=== PATIENT | female | born 1960 | race Caucasian/White ===

== ENCOUNTER 2016-05-25 13:52 | Outpatient (CLI) | payer BC ==
[2016-05-25 14:30] LABS: #Basophils 0.2 thou/uL (0.0-0.2); #Eosinphils 0.3 thou/uL (0.0-0.7); #Lymphocytes 3.9 thou/uL (1.20-3.40); #Monocytes 0.9 thou/uL (0.11-0.59); #Neutrophils 9.6 thou/uL (1.40-6.50); %Basophils 1.4 % (0.0-1.0); %Eosinophils 1.9 % (0.0-10.0); %Monocytes 6.2 % (0.0-10.0); %Neutrophils 64.6 % (42.0-75.0); Hemoglobin 14.4 g/dL (12.0-16.0); Mean Corpuscular HGB CONC 35.6 g/dL (32.0-36.0); Mean Corpuscular Volume 89.9 fl (81.0-99.0); Mean Platelet Volume 7.2 fL (7.4-10.4); Platelet Count 296 thou/uL (130-400); RBC Distribution Width 11.4 % (11.5-14.5); Red Blood Cell (RBC) Count 4.48 mill/uL (4.20-5.40); White Blood Cell (WBC) Count 14.9 thou/uL (4.8-10.8)
[2016-05-25 14:40] LABS: Hemoglobin A1c 7.2 % (4.0-6.0)
[2016-05-25 14:46] LABS: ALT (SGPT) 15 U/L (0-55); AST (SGOT) 12 U/L (5-34); Albumin 4.2 g/dL (3.5-5.0); Alkaline Phosphatase 73 U/L (40-150); Anion Gap 17 mmol/L (10-20); BUN (Urea Nitrogen) 15 mg/dL (9.8-20.1); Bilirubin, Total 0.3 mg/dL (0.2-1.2); Calc. Creatinine Clearance 0 mL/min (70-130); Calcium 9.7 mg/dL (7.8-10.44); Carbon Dioxide 24 mmol/L (22-29); Cardiac Risk 3.5 (Less than 4.5); Chloride 101 mmol/L (98-107); Cholesterol 184 mg/dL (< 200 Desired); Estimated GFR-MDRD Greater than 90; Globulin 3.3 g/dL (2.4-3.5); Glucose 183 mg/dL (70-105); HDL Cholesterol 53 mg/dL (>60 Neg Risk); LDL Cholesterol, Calculated 67 mg/dL; Potassium 3.8 mmol/L (3.5-5.1); Protein, Total 7.5 g/dL (6.0-8.3); Sodium 138 mmol/L (136-145); Triglycerides 322 mg/dL (Less than 150)
[2016-05-26 18:25] LABS: Creatinine, Urine 139.08 mg/dL (47-110); Microalbumin Urine 3.4 mg/dL (0.5-50.0); Microalbumin/Creat Ratio 24.4 mg/g (Less than 30)
== END 2016-05-25 13:53 | disposition home or self-care (01) ==
LOC: MADLABBHPM 13:52
PROVIDERS: ATTEND Family Medicine
DX: E11.9 Type 2 diabetes mellitus without complications (principal)
CPT/HCPCS: 36415; 80053; 80061; 82043; 82570; 83036; 84443; 85025

== ENCOUNTER 2018-06-18 09:14 | Emergency (ER) | payer BC ==
[2018-06-18] MEDS ORDERED: Ondansetron ODT 4 MG TAB ONE (09:52)
== END 2018-06-18 10:18 | disposition home or self-care (01) ==
LOC: MADERS 09:14
DX: J11.1 Influenza due to unidentified influenza virus with other respiratory manifestations (principal); E11.9 Type 2 diabetes mellitus without complications; Z79.899 Other long term (current) drug therapy; Z79.84 Long term (current) use of oral hypoglycemic drugs
CPT/HCPCS: 99283; Q0162

== ENCOUNTER 2020-09-30 11:16 | Outpatient (CLI) | payer BC ==
[2020-09-30 11:55] LABS: #Basophils 0.2 thou/uL (0.0-0.2); #Eosinphils 0.4 thou/uL (0.0-0.7); #Monocytes 0.7 thou/uL (0.11-0.59); #Neutrophils 7.7 thou/uL (1.40-6.50); %Basophils 1.4 % (0.0-1.0); %Lymphocytes 30.5 % (21.0-51.0); %Monocytes 5.7 % (0.0-10.0); %Neutrophils 59.5 % (42.0-75.0); Mean Corpuscular HGB CONC 32.8 g/dL (32.0-36.0); Mean Corpuscular Hemoglobin 30.2 pg (27.0-31.0); Mean Platelet Volume 7.8 fL (7.4-10.4); Platelet Count 291 thou/uL (130-400); RBC Distribution Width 11.6 % (11.5-14.5); Red Blood Cell (RBC) Count 4.64 mill/uL (4.20-5.40)
[2020-10-01 10:25] LABS: Band 2 % (5-11); Eosinophils 6 % (0-10); Lymphocytes 27 % (21-51); Monocytes 2 % (0-10); Reactive Lymphocytes 5 % (0-10)
[2020-10-01 10:26] LABS: Platelet Morphology Comment Appears Adequate; Polychromasia SLIGHT = 2-3 cells (100X) (0-2/hpf)
[2020-10-01 10:30] LABS: Neutrophil 56 % (42-75)
== END 2020-09-30 11:17 | disposition home or self-care (01) ==
LOC: MADLAB 11:16
PROVIDERS: ATTEND Family Medicine
DX: M25.511 Pain in right shoulder (principal); D72.9 Disorder of white blood cells, unspecified; M19.011 Primary osteoarthritis, right shoulder
CPT/HCPCS: 36415; 85025; 85060

== ENCOUNTER 2021-11-27 17:02 | Outpatient (CLI) | payer BC | END 2021-11-27 17:03 | disposition home or self-care (01) | LOC: MADRAD 17:02 | PROVIDERS: ATTEND Family Medicine | DX: M25.562 Pain in left knee (principal); M17.12 Unilateral primary osteoarthritis, left knee ==

== ENCOUNTER 2022-04-14 11:39 | Outpatient (CLI) | payer BC | END 2022-04-14 11:40 | disposition home or self-care (01) | LOC: MADRAD 11:39 | PROVIDERS: ATTEND Internal Medicine | DX: J45.40 Moderate persistent asthma, uncomplicated (principal); J01.90 Acute sinusitis, unspecified; J32.0 Chronic maxillary sinusitis | CPT/HCPCS: 70220; 71046 ==

== ENCOUNTER 2022-08-05 14:31 | Outpatient (CLI) | payer BC | END 2022-08-05 14:32 | disposition home or self-care (01) | LOC: MADLABBHPM 14:31 → MADLAB 14:32 | PROVIDERS: ATTEND Family Medicine | DX: L91.8 Other hypertrophic disorders of the skin (principal) | CPT/HCPCS: 88305 ==